=== PATIENT | female | born 1945 | race Caucasian/White ===

== ENCOUNTER → 2016-06-27 | Outpatient (CLI) | payer OTHER ==
[2016-06-27 10:36] LABS: HEMATOCRIT 40.2 % (37.0-47.0); HEMOGLOBIN 12.8 g/dL (12.0-16.0); MEAN CORPUSCULAR HEMOGLOBIN 28.5 PG (27-31); MEAN CORPUSCULAR HGB CONC 31.8 g/dL (33-37); MEAN PLATELET VOLUME 10.1 FL (7.4-12.2); RDW COEFFICIENT OF VARIATION 14.9 % (11.5-14.5); RED BLOOD COUNT 4.49 10^6/uL (4.20-5.40); WHITE BLOOD COUNT 5.38 10^3/uL (4.8-10.8)
[2016-06-27 10:48] LABS: BAND NEUTROPHILS % 0 % (0-10); BASOPHILS % (MANUAL) 1 % (0-1); EOSINOPHILS % (MANUAL) 1 % (0-8); LYMPHOCYTES % (MANUAL) 16 % (10-50); MONOCYTES % (MANUAL) 9 % (0-12); NEUTROPHILS % (MANUAL) 73 % (50-80); PLATELET MORPHOLOGY COMMENT NORMAL MORPHOLOGY (NORM)
== END ==
LOC: MOB LAB 09:44
PROVIDERS: ATTEND Podiatrist Foot & Ankle Surgery
DX: L97.529 Non-pressure chronic ulcer of other part of left foot with unspecified severity (principal); E11.9 Type 2 diabetes mellitus without complications
CPT/HCPCS: 36415; 85007; 86140

== ENCOUNTER → 2016-07-04 | Outpatient (CLI) | payer OTHER | LOC: MMPC 11:11 | PROVIDERS: ATTEND Internal Medicine | DX: E11.9 Type 2 diabetes mellitus without complications (principal); I10 Essential (primary) hypertension; R19.7 Diarrhea, unspecified; F41.1 Generalized anxiety disorder; E78.5 Hyperlipidemia, unspecified; E03.9 Hypothyroidism, unspecified; E66.01 Morbid (severe) obesity due to excess calories; M14.672 Charcot's joint, left ankle and foot; K52.9 Noninfective gastroenteritis and colitis, unspecified | CPT/HCPCS: 99213; G0463 ==

== ENCOUNTER → 2016-07-05 | Outpatient (CLI) | payer OTHER | LOC: MMPC 10:00 | PROVIDERS: ATTEND Podiatrist Foot & Ankle Surgery | DX: L97.422 Non-pressure chronic ulcer of left heel and midfoot with fat layer exposed (principal); E11.621 Type 2 diabetes mellitus with foot ulcer; L97.512 Non-pressure chronic ulcer of other part of right foot with fat layer exposed; M79.672 Pain in left foot; M20.11 Hallux valgus (acquired), right foot; G62.89 Other specified polyneuropathies; M21.41 Flat foot [pes planus] (acquired), right foot; M21.6X1 Other acquired deformities of right foot; E66.01 Morbid (severe) obesity due to excess calories; Z89.421 Acquired absence of other right toe(s); M21.42 Flat foot [pes planus] (acquired), left foot; M21.6X2 Other acquired deformities of left foot | CPT/HCPCS: 97597 ×2; G0463 ==

== ENCOUNTER → 2016-07-11 | Outpatient (CLI) | payer OTHER ==
[2016-07-11 10:56] LABS: BLOOD UREA NITROGEN 24 mg/dL (7-22); CREATININE 0.6 mg/dL (0.50-1.20); EST GLOMERULAR FILTRATION > 60 (>60 ml/min/1.73m(2))
--- NOTE | 2016-07-11 12:42 | DI ---
MRI LOW EXTREMITY W/WO CN,07/11/2016 10:38 AM: Clinical History: Left foot pain. Previous Exam: X-ray of the left foot performed May 17, 2016 Findings: Multiplanar MR images are obtained through the left foot with and without contrast. Multiple postsurgical changes are seen consistent with fixation of the subtalar joints as well as the calcaneocuboid joint. Postsurgical changes are seen of the left first metatarsophalangeal joint with a lag screw through the proximal left first phalanx. Patient is status post amputation of the second digit at the metatarsophalangeal joint. There is also an amputation of the third middle interphalangeal joint. There are advanced degenerative changes involving the intertarsal joints predominantly at the navicul ar cuneiform joints where there is subchondral cyst formation consistent with active degeneration. Signal characteristics are limited within the midfoot and hindfoot due to metallic blooming artifact. There is pes planus deformity. There is a trace amount fluid within the distal tibiofibular joint. No acute fractures are seen. There is no fluid collection. The musculature is unremarkable although a trophic. Impression: Advanced degeneration of the mid foot predominantly with degenerative changes of the tarsometatarsal joints and intertarsal joints. Postsurgical changes are seen consistent with uterine of the hindfoot and amputations of the second and third digits.
== END ==
LOC: MRI 10:25
PROVIDERS: ATTEND Podiatrist
DX: M79.672 Pain in left foot (principal); M19.072 Primary osteoarthritis, left ankle and foot
CPT/HCPCS: 36415; 73720; 82565; 84520; A9579

== ENCOUNTER → 2016-07-12 | Outpatient (CLI) | payer OTHER | LOC: MMPC 10:00 | PROVIDERS: ATTEND Podiatrist Foot & Ankle Surgery | DX: L97.422 Non-pressure chronic ulcer of left heel and midfoot with fat layer exposed (principal); E11.621 Type 2 diabetes mellitus with foot ulcer; E66.01 Morbid (severe) obesity due to excess calories; E11.42 Type 2 diabetes mellitus with diabetic polyneuropathy; I73.9 Peripheral vascular disease, unspecified; M20.41 Other hammer toe(s) (acquired), right foot; M21.961 Unspecified acquired deformity of right lower leg; M20.11 Hallux valgus (acquired), right foot; M21.6X1 Other acquired deformities of right foot; M21.6X2 Other acquired deformities of left foot | CPT/HCPCS: 11042 ==

== ENCOUNTER → 2016-07-25 | Outpatient (CLI) | payer OTHER ==
[2016-07-25 16:17] LABS: BASOPHILS # (AUTO) 0.02 10*3/UL; BASOPHILS % (AUTO) 0.4 % (0-1); EOSINOPHILS % (AUTO) 1.7 % (0-8); HEMATOCRIT 38.8 % (37.0-47.0); HEMOGLOBIN 12.4 g/dL (12.0-16.0); IMM GRAN % (AUTO) 0.2 % (0-5); IMM GRAN# (AUTO) 0.01 10*3/UL; LYMPHOCYTES % (AUTO) 23.5 % (10-50); MEAN CORPUSCULAR HEMOGLOBIN 27.9 PG (27-31); MEAN PLATELET VOLUME 9.7 FL (7.4-12.2); MONOCYTES # (AUTO) 0.53 10*3/UL (0.3-0.8); MONOCYTES % (AUTO) 11.3 % (5-15); NEUTROPHILS # (AUTO) 2.95 10*3/UL; NEUTROPHILS % (AUTO) 62.9 % (50-80); RDW COEFFICIENT OF VARIATION 15.4 % (11.5-14.5); RED BLOOD COUNT 4.44 10^6/uL (4.20-5.40); WHITE BLOOD COUNT 4.69 10^3/uL (4.8-10.8)
[2016-07-25 16:18] LABS: PLATELET MORPHOLOGY COMMENT NORMAL MORPHOLOGY (NORM)
[2016-07-25 16:27] LABS: BLOOD UREA NITROGEN 22 mg/dL (7-22); BUN/CREATININE RATIO 31.42 (6-20); C-REACTIVE PROTEIN 2.9 mg/dL (0.0-0.9); CALCIUM 9.8 mg/dL (8.7-10.7); CHLORIDE 99 meq/L (98-112); CREATININE 0.7 mg/dL (0.50-1.20); EST GLOMERULAR FILTRATION > 60 (>60 ml/min/1.73m(2)); GLUCOSE 121 mg/dL (78-110); POTASSIUM 4.7 meq/L (3.8-5.2); SODIUM 134 meq/L (135-145)
[2016-07-25 16:55] LABS: ERYTHROCYTE SEDIMENTATION RATE 25 MM/HR (0-20)
== END ==
LOC: MOB LAB 14:28
PROVIDERS: ATTEND Internal Medicine
DX: E11.9 Type 2 diabetes mellitus without complications (principal); E03.9 Hypothyroidism, unspecified; E78.5 Hyperlipidemia, unspecified; I10 Essential (primary) hypertension; I73.9 Peripheral vascular disease, unspecified; L97.511 Non-pressure chronic ulcer of other part of right foot limited to breakdown of skin; M86.179 Other acute osteomyelitis, unspecified ankle and foot; R19.7 Diarrhea, unspecified
CPT/HCPCS: 36415; 80048; 83036; 85025; 85652; 86140

== ENCOUNTER → 2016-08-08 | Outpatient (CLI) | payer OTHER ==
[2016-08-08 16:48] LABS: BLOOD UREA NITROGEN 31 mg/dL (7-22); BUN/CREATININE RATIO 44.28 (6-20); CALCIUM 9.5 mg/dL (8.7-10.7); EST GLOMERULAR FILTRATION > 60 (>60 ml/min/1.73m(2)); SERUM ALBUMIN 4.4 g/dL (3.5-4.8)
== END ==
LOC: LAB 16:14
PROVIDERS: ATTEND Internal Medicine Infectious Disease
DX: E11.621 Type 2 diabetes mellitus with foot ulcer (principal); L97.529 Non-pressure chronic ulcer of other part of left foot with unspecified severity; L97.519 Non-pressure chronic ulcer of other part of right foot with unspecified severity; L03.115 Cellulitis of right lower limb
CPT/HCPCS: 36415; 80053

== ENCOUNTER → 2016-08-13 | Outpatient (CLI) | payer OTHER ==
[2016-08-13 17:18] LABS: BLOOD UREA NITROGEN 22 mg/dL (7-22); BUN/CREATININE RATIO 36.66 (6-20); CALCIUM 9.5 mg/dL (8.7-10.7); EST GLOMERULAR FILTRATION > 60 (>60 ml/min/1.73m(2))
[2016-08-13 17:21] LABS: HEMOGLOBIN A1C 6.91 % (4.2-6.0)
== END ==
LOC: MOB LAB 16:29
PROVIDERS: ATTEND Internal Medicine
DX: E11.9 Type 2 diabetes mellitus without complications (principal); R60.0 Localized edema
CPT/HCPCS: 36415; 80048; 83036

== ENCOUNTER → 2016-09-13 | Outpatient (CLI) | payer OTHER | LOC: MMPC 10:00 | PROVIDERS: ATTEND Podiatrist Foot & Ankle Surgery | DX: M79.671 Pain in right foot (principal); L97.511 Non-pressure chronic ulcer of other part of right foot limited to breakdown of skin; M20.41 Other hammer toe(s) (acquired), right foot; E11.621 Type 2 diabetes mellitus with foot ulcer | CPT/HCPCS: 99212; G0463 ==

== ENCOUNTER → 2016-09-26 | Outpatient (CLI) | payer OTHER ==
--- NOTE | 2016-09-27 09:13 | DI ---
XR FOOT COMPLETE MIN 3VW WB,09/26/2016 12:22 PM: Clinical History: Ulcer of the right foot Previous Exam: May 17, 2016 contralateral side. Findings: 3 views of the right foot are obtained, and demonstrate a pes planus deformity with degenerative tirado ges of the calcaneonavicular joint as well as the tibiotalar joint. There is a hallux valgus deformity involving the right first metatarsophalangeal joint measuring 27?. A few peripheral vascular calcifications are seen. Impression: 27? of hallux varus of the right first metatarsophalangeal joint. Severe pes planus deformity with degenerative changes of the hindfoot and midfoot.
== END ==
LOC: RAD 12:28 → MOB RAD 12:28
PROVIDERS: ATTEND Podiatrist Foot & Ankle Surgery
DX: L97.511 Non-pressure chronic ulcer of other part of right foot limited to breakdown of skin (principal); M20.10 Hallux valgus (acquired), unspecified foot; M20.5X1 Other deformities of toe(s) (acquired), right foot
CPT/HCPCS: 73630

== ENCOUNTER 2016-10-09 21:47 | Emergency (ER) | payer OTHER ==
[2016-10-09] MEDS ORDERED: Sodium Chloride 0.9% 1,000 ML PRIMARY IV ONE (22:13)
[2016-10-09] MEDS ORDERED: NORMAL SALINE 10 ML SYRINGE FLUSH IVP PRN (22:13)
[2016-10-09] MEDS ORDERED: ONDANSETRON 4 MG/2 ML VIAL IVP ONE (22:13)
--- NOTE | 2016-10-09 22:24 | PDOC ---
Nausea/Vomiting/Diarrhea HPI - General Chief Complaint: Nausea / Vomiting / Diarrhea Stated Complaint: Nausea Date Seen by Provider: 10/09/16 Time Seen by Provider: 22:10 Source: POSITIVE: Patient Exam Limitations: POSITIVE: No limitations Nurse's Notes Reviewed & Considered: Yes - History of Present Illness Initial Comments: The patient is a 70-year-old female who presents to the emergency department with sudden onset of nausea, vomiting and diarrhea. She states that she ate at [employer] in earlier this evening. She was apparently on her way to the grocery store when she had onset of severe nausea. She was not feeling well at all and was making her way to the emergency room. In the parking lot she had multiple episodes of emesis and on arrival to the ER had multiple episodes of diarrhea. She denies any associated abdominal pain currently. She now has a headache after vomiting. She denies chest pain however does report that she feels somewhat short of breath. She denies any pain with taking a breath. She was feeling fine prior to this evening. She is currently being treated in a cast for a nonhealing ulcer on her left foot. She denies any prior history of blood clots. She does have a history of COPD. She previously was on antibiotics for her foot however has been off antibiotics for about a month. She was not having any diarrhea prior to this evening. - Patient Home Medications Home Medications: Home Medications Dexlansoprazole [Dexilant] 60 mg PO QAM 05/02/11 Blood Sugar Diagnostic [Freestyle Lite Test Strips] 1 strip MC QD #50 strip 04/10 Estrogens, Conj Vaginal Cream [Premarin Vaginal Cream] 0.5 gm VAGINAL 2XW tube 05/16/15 Venlafaxine HCl [Venlafaxine Hcl Er] 1 tab PO DAILY #30 cap 06/29/15 Venlafaxine HCl [Venlafaxine Hcl Er] 1 tab PO DAILY #30 tab 06/29/15 Buspirone HCl 0.5 tab PO PRN #30 tab 07/20/15 Potassium Chloride 1 cap PO QD #60 cap 01/24/16 Celecoxib [Celebrex] 1 cap PO DAILY #100 cap 02/14/16 Metoprolol Succinate [Toprol Xl] 1 tab PO QHS #90 tab-cap 02/14/16 Levomefolate/B6/B12/Algal Oil [Metanx Capsule] 1 each PO BID #180 cap 03/13/16 Sodium Chloride [Wound Wash Saline] 210 ml TOPICAL QD #3 spray 04/05/16 Foam Bandage [Mepilex Border] 1 each TOPICAL BID #1 box 05/17/16 Honey [Medihoney] 1 applic TOPICAL QD #1 applic 05/17/16 Oxybutynin Chloride [Oxybutynin Chloride Er] 1 tab-cap PO DAILY #90 tab Metformin HCl 1 tab PO QAM tab 08/08/16 Metformin HCl 1 tab PO QPM #270 tab 08/08/16 Furosemide 1 tab-cap PO BID #60 tab 08/13/16 Lisinopril 1 tab-cap PO BID #180 tab 08/13/16 Levothyroxine Sodium [Synthroid] 1 tab-cap ORAL DAILY #90 tab-cap 09/05/16 Gabapentin 1 tab-cap PO BID #180 tab 09/25/16 Ondansetron Odt [Zofran Odt] 8 mg PO Q6H PRN #10 tab.rapdis 10/10/16 - Patient Allergies Allergies/Adverse Reactions: Allergies Allergy/AdvReac Type Severity Reaction Status Date / Time Fbqtaik-Ikt-Ejh Reductase AdvReac JUST FEELS Verified 10/09/16 22:23 Inhibitor "OFF" Past Medical History - heen HEENT History: Denies History Cardiovascular History: Hypertension, CAD, Hyperlipidemia Additional Cardiovasular History: Pt denies that she does not have any "heart problems". Respiratory History: COPD, Shortness of Breath, Sleep Apnea, Home Oxygen Use, Home CPAP Use Additional Respiratory History: CPAP at night only. Denies home oxygen use. Gastrointestinal History: GERD, Irritable Bowel Syndrome, Other (please comment) Additional Gastrointestinal History: SHELBY'S ESOPHAGUS Genitourinary History: Incontinence, Other (please comment) Additional Genitourinary History: Recurrent vaginal yeast infections. Pt reports this is caused by the antibiotics that she takes daily. Endocrine History: Type 2 Diabetes (oral), Hypothyroidism Musculoskeletal History: Arthritis, Muscle Weakness, Limited ROM, Joint Pain, Physical Limitation, Osteoarthritis Prosthesis or Implant: Yes Additional Musculoskeletal History: bilat hip replacement, reconstructive surg left foot. Pt reports having had several small operations on her right foot. DEGENERATION OF CERVICAL INTERVERTEBRAL DISC,total right shoulder replacemnt. Neurological History: Motion Sickness Additional Neurological History: PERIPHERAL NEUROPATHY/CHRONIC FATIGUE SYNDROME Blood Disorders: Denies History Psychiatric History: Depression, Anxiety Disorders History of Sexually Transmitted Diseases: No Cancer History: Other (please comment) Cancer Treatment / Date(s) of Treatment: HYST/ RADIATION 2010 History of MDRO: No History of Other Communicable Diseases: No Alcohol Use: None Substance Use Type: None Previous Surgical History: Yes Type / Date of Surgery: Patient reports that she has had bilateral hip replacement(1992-L hip, 1994-R hip). In addition she has operations on both feet (2009-L foot,2012-R foot). Pt reports that her left foot has internalfixation. Hx of hysterectomy 2010. RIGHT TSA/ COLONOSCOPY/ EGD Anesthesia Reactions: Yes (PONV) Malignant Hyperthermia: No Significant Family History: Heart disease, Cancer, Diabetes, Hypertension Past Medical History Reviewed: Reviewed - No Changes ROS - Limitations ROS Limitations: No Limitations Constitution: DENIES: Chills, Fever Cardiovascular: REPORTS: Denies Cardiac Symptoms. DENIES: Chest Pain, Heart Racing Respiratory: REPORTS: Shortness Of Breath. DENIES: Cough Non Productive, Cough Productive Neurological: REPORTS: Headache. DENIES: Numbness, Fainting, Weakness Gastrointestinal: REPORTS: Nausea, Vomitting, Diarrhea. DENIES: Abdominal Pain , Black Stools, Bloody Stools Musculoskeletal: REPORTS: Denies MS Symptoms Genitourinary: REPORTS: Denies Symptoms Eyes: REPORTS: Denies Symptoms ENT: REPORTS: Denies Symptoms Skin: DENIES: Rash Nausea/Vomiting/Diarrhea Exam - General Appearance General Appearance: POSITIVE: Alert, Cooperative, No Acute Distress, Other (She does appear acutely ill) - HEENT HEENT: POSITIVE: Head Inspection Nml, Eyes Inspection Nml, Ears Inspection Nml, Dry Mucous Membranes - Neck Neck: POSITIVE: Supple, Normal Inspection - Respiratory Respiratory: POSITIVE: No Respiratory Distress, Breath Sounds Normal - Cardiovascular Cardiovascular: POSITIVE: Regular Rate and Rhythm, Heart Sounds Normal - Abdomen Abdomen: Soft: (All Quadrants), Normal Bowel Sounds: (All Quadrants), Denies Tenderness: (All Quadrants), No Distention: (All Quadrants) - Skin Skin: POSITIVE: Intact, No Rash - Extremities Extremity: Normal ROM: (All Extremities) Additional Extremities Details: Her left lower extremity is in a cast N/V/D Progress - Results Reviewed by me Lab Results Reviewed: Yes Lab Results:: Laboratory Results 05/16/17 Range/Units 22:18 WBC 6.58 (4.8-10.8) 10^3/uL RBC 4.71 (4.20-5.40) 10^6/uL Hgb 12.9 (12.0-16.0) g/dL Hct 40.7 (37.0-47.0) % MCV 86.4 (81-99) FL MCH 27.4 (27-31) PG MCHC 31.7 L (33-37) g/dL RDW Std Deviation 49.7 (39-50) fL RDW Coeff of Concha 15.9 H (11.5-14.5) % Plt Count 233 (140-350) 10*3/uL MPV 9.5 (7.4-12.2) FL Immature Gran % (Auto) 0.2 (0-5) % Neut % (Auto) 77.0 (50-80) % Lymph % (Auto) 10.8 (10-50) % Henry % (Auto) 9.1 (5-15) % Eos % (Auto) 2.1 (0-8) % Baso % (Auto) 0.8 (0-1) % Immature Gran # (Auto) 0.01 10*3/UL Neut # (Auto) 5.07 10*3/UL Lymph # (Auto) 0.71 10*3/uL Henry # (Auto) 0.60 (0.3-0.8) 10*3/UL Eos # (Auto) 0.14 10*3/UL Baso # (Auto) 0.05 10*3/UL WBC Morphology Comment Normal morphology (NORM) Plt Morphology Comment Normal morphology (NORM) RBC Morph Comment Normal morphology (NORM) Sodium 140 (135-145) meq/L Potassium 3.9 (3.8-5.2) meq/L Chloride 104 (98-112) meq/L Carbon Dioxide 24 (23-33) meq/L Anion Gap 12 (5-20) BUN 18 (7-22) mg/dL Creatinine 0.6 (0.50-1.20) mg/dL Estimated GFR > 60 (>60 ml/min/1.73m(2)) BUN/Creatinine Ratio 30.00 H (6-20) Glucose 161 H (78-110) mg/dL Calculated Osmolality 294.0 H (267-292) mOsm/kg Calcium 8.7 (8.7-10.7) mg/dL Magnesium 1.3 L (1.6-2.4) mg/dL Total Bilirubin 0.6 (0.3-1.2) mg/dL AST 29 (8-39) IU/L ALT 28 (9-52) IU/L Alkaline Phosphatase 88 (38-126) IU/L Troponin I 0.000 (< 0.040) ng/mL C-Reactive Protein 1.2 H (0.0-0.9) mg/dL Total Protein 7.3 (6.1-8.0) g/dL Albumin 3.8 (3.5-4.8) g/dL Globulin 3.5 (2.50-4.10) g/dL Albumin/Globulin Ratio 1.00 L (1.3-2.0) mg/g Amylase 106 (30-110) U/L Lipase 77 (23-300) IU/L EKG Interpreted/Reviewed By Me:: Yes EKG Interpretation:: POSITIVE: Normal Sinus Rhythm, Normal Rate, Normal Intervals, Normal ST/T - Patient's Progress MDM / ED Course: An IV is established and she received 1 L bolus of normal saline as well as Zofran 4 mg IV. After administration of fluids and Zofran the patient was feeling much better. She had no further vomiting or diarrhea here in the emergency room. Her magnesium was found to be low and she received 2 g of magnesium IV. At this point her clinical presentation is most consistent with a viral gastroenteritis or food poisoning. She is feeling better currently and is considered stable for discharge home. She was discharged with Zofran 8 mg every 6 hours as needed for nausea or vomiting. She will return to the emergency room if increased vomiting or dehydration, abdominal pain, any worsening or change in symptoms. - Consult Counseled: POSITIVE: Patient, RE: Lab Results, RE: DX, RE: Need for F/U Patient Care Time - Estimated PCT Patient Care Time (In Minutes): 30 Vital Signs - Recent Vital Signs Vital Signs: Vital Signs (Last 8 hours) Temp Pulse Resp BP Pulse Ox 10/09/16 22:13 96.9 F 86 18 154/99 95 - VS Reviewed Vital Signs Reviewed: Yes Discharge Clinical Impression: Gastroenteritis, Dehydration, Hypomagnesemia Discharge Disposition: Discharged to Home Condition: Stable Prescriptions / Orders: Ondansetron Odt [Zofran Odt] 8 mg PO Q6H PRN #10 tab.rapdis PRN Reason: Nausea / Vomiting Patient Instructions Given at Discharge: Dehydration (ED), Gastroenteritis (ED) , Hypomagnesemia (ED) Additional Instructions: The setting onset of nausea, vomiting and diarrhea is most likely related to a viral stomach flu or food poisoning. You have been prescribed Zofran 8 mg every 6 hours as needed for nausea. Push fluids and continue a bland diet until feeling better. Return to the emergency room if increased vomiting or dehydration, abdominal pain, any worsening or change in symptoms. Follow Up With: FREDDY HARDING [Primary Care Provider] -
--- NOTE | 2016-10-09 22:28 | EKG ---
[address] [place] [address] Measurements Intervals [place] Rate: 80 P: 45 CT: 172 QRS: -68 QRSD: 118 T: 67 QT: 402 QTc: 438 Interpretive Statements SINUS RHYTHM MARKED LEFT AXIS DEVIATION [QRS AXIS < -30] POSSIBLE ANTERIOR MYOCARDIAL INFARCTION [30 ms Q WAVE IN V3/V4, OR R < 0.2 mV IN V4], OF INDETERMINATE AGE Compared to ECG 09/17/2014 13:55:32 Left-axis deviation now present Myocardial infarct finding now present Left anterior fascicular block no longer present Electronically Signed On 10-10-16 08:05:31 MDT by Abilio Rust MD [email or web address]
[2016-10-09 22:41] LABS: BASOPHILS % (AUTO) 0.8 % (0-1)
[2016-10-09 22:49] VITALS: RESP 18; TEMP 96.9
[2016-10-09 23:03] LABS: BASOPHILS # (AUTO) 0.05 10*3/UL; EOSINOPHILS # (AUTO) 0.14 10*3/UL; EOSINOPHILS % (AUTO) 2.1 % (0-8); HEMATOCRIT 40.7 % (37.0-47.0); HEMOGLOBIN 12.9 g/dL (12.0-16.0); LYMPHOCYTES # (AUTO) 0.71 10*3/uL; MEAN CORPUSCULAR HEMOGLOBIN 27.4 PG (27-31); MEAN CORPUSCULAR HGB CONC 31.7 g/dL (33-37); MEAN CORPUSCULAR VOLUME 86.4 FL (81-99); MEAN PLATELET VOLUME 9.5 FL (7.4-12.2); MONOCYTES % (AUTO) 9.1 % (5-15); NEUTROPHILS # (AUTO) 5.07 10*3/UL; RED BLOOD COUNT 4.71 10^6/uL (4.20-5.40)
[2016-10-09 23:07] LABS: WBC MORPHOLOGY COMMENT NORMAL MORPHOLOGY (NORM)
[2016-10-09 23:08] LABS: PLATELET MORPHOLOGY COMMENT NORMAL MORPHOLOGY (NORM); RBC MORPHOLOGY COMMENT NORMAL MORPHOLOGY (NORM)
[2016-10-09 23:17] LABS: BLOOD UREA NITROGEN 18 mg/dL (7-22); EST GLOMERULAR FILTRATION > 60 (>60 ml/min/1.73m(2))
[2016-10-09 23:18] LABS: CALCIUM 8.7 mg/dL (8.7-10.7)
[2016-10-09 23:19] LABS: SERUM ALBUMIN 3.8 g/dL (3.5-4.8)
[2016-10-09 23:20] LABS: LIPASE 77 IU/L (23-300)
[2016-10-09 23:32] LABS: C-REACTIVE PROTEIN 1.2 mg/dL (0.0-0.9); MAGNESIUM 1.3 mg/dL (1.6-2.4)
[2016-10-09] MEDS ORDERED: Magnesium Sulfate 2gm (Premix) 2 GM in Premix 1 BAG IV ONE (23:51)
[2016-10-10] MEDS ORDERED: Ondansetron ODT Tab 8 MG TAB PO SCH (00:15)
== END 2016-10-10 00:40 | disposition home or self-care (01) ==
LOC: ER 21:47
DX: K52.9 Noninfective gastroenteritis and colitis, unspecified (principal); E86.0 Dehydration; E83.42 Hypomagnesemia; R19.7 Diarrhea, unspecified; R06.02 Shortness of breath; R51 Headache; R11.2 Nausea with vomiting, unspecified; I10 Essential (primary) hypertension; E11.40 Type 2 diabetes mellitus with diabetic neuropathy, unspecified
CPT/HCPCS: 80053; 82150; 82948; 83690; 83735; 84484; 85025; 86140; 93005; 93010; 96361; 96365; 96375; 99283 ×2; Q0162; J2405; J3475; J7030

== ENCOUNTER → 2016-10-12 | Outpatient (CLI) | payer OTHER | LOC: MMPC 10:00 | PROVIDERS: ATTEND Podiatrist Foot & Ankle Surgery | DX: L97.422 Non-pressure chronic ulcer of left heel and midfoot with fat layer exposed (principal); L97.519 Non-pressure chronic ulcer of other part of right foot with unspecified severity; L97.429 Non-pressure chronic ulcer of left heel and midfoot with unspecified severity; E11.621 Type 2 diabetes mellitus with foot ulcer; R60.0 Localized edema | CPT/HCPCS: 99213; G0463 ==

== ENCOUNTER → 2016-10-31 | Outpatient (CLI) | payer OTHER | LOC: MMPC 10:00 | PROVIDERS: ATTEND Podiatrist Foot & Ankle Surgery | DX: M20.11 Hallux valgus (acquired), right foot (principal); L97.422 Non-pressure chronic ulcer of left heel and midfoot with fat layer exposed; I73.9 Peripheral vascular disease, unspecified; E66.01 Morbid (severe) obesity due to excess calories; E11.42 Type 2 diabetes mellitus with diabetic polyneuropathy; Z89.421 Acquired absence of other right toe(s) | CPT/HCPCS: 99212; G0463 ==

== ENCOUNTER → 2016-11-06 | Outpatient (CLI) | payer OTHER ==
[2016-11-06 13:50] LABS: BASOPHILS # (AUTO) 0.01 10*3/UL; BASOPHILS % (AUTO) 0.2 % (0-1); EOSINOPHILS # (AUTO) 0.23 10*3/UL; EOSINOPHILS % (AUTO) 5.4 % (0-8); HEMATOCRIT 39.7 % (37.0-47.0); HEMOGLOBIN 12.6 g/dL (12.0-16.0); LYMPHOCYTES # (AUTO) 0.75 10*3/uL; MEAN CORPUSCULAR HEMOGLOBIN 27.2 PG (27-31); MEAN CORPUSCULAR HGB CONC 31.7 g/dL (33-37); MEAN CORPUSCULAR VOLUME 85.6 FL (81-99); MEAN PLATELET VOLUME 9.4 FL (7.4-12.2); MONOCYTES # (AUTO) 0.46 10*3/UL (0.3-0.8); MONOCYTES % (AUTO) 10.8 % (5-15); NEUTROPHILS # (AUTO) 2.82 10*3/UL; RED BLOOD COUNT 4.64 10^6/uL (4.20-5.40)
[2016-11-06 13:53] LABS: PLATELET MORPHOLOGY COMMENT NORMAL MORPHOLOGY (NORM); RBC MORPHOLOGY COMMENT NORMAL MORPHOLOGY (NORM); WBC MORPHOLOGY COMMENT NORMAL MORPHOLOGY (NORM)
[2016-11-06 14:01] LABS: BLOOD UREA NITROGEN 19 mg/dL (7-22); BUN/CREATININE RATIO 31.66 (6-20); CALCIUM 9.3 mg/dL (8.7-10.7); CHOL/HDL RATIO 3.84 RATIO (0-4.0); EST GLOMERULAR FILTRATION > 60 (>60 ml/min/1.73m(2)); HDL CHOLESTEROL 65 mg/dL (40-150); SERUM CHOLESTEROL 250 mg/dL (120-200)
[2016-11-06 14:08] LABS: BILIRUBIN,URINE NEGATIVE (NEG); CLARITY,URINE CLEAR (CLEAR); COLOR,URINE YELLOW; GLUCOSE, URINE (UA) NEGATIVE (NEG); NITRATE,URINE NEGATIVE (NEG); OCCULT BLOOD,URINE NEGATIVE (NEG); PH,URINE 5.5 (5.0-8.5); PROTEIN,URINE NEGATIVE (NEG); UROBILINOGEN,URINE 0.2 mg/dL (0.2)
[2016-11-06 14:21] LABS: HEMOGLOBIN A1C 6.48 % (4.2-6.0)
[2016-11-06 14:23] LABS: RBC,URINE 0-1 /hpf; SQUAMOUS EPITHELIAL CELL,UR FEW; URINE SAMPLE TYPE CLEAN CATCH URINE; WBC,URINE 0-2
[2016-11-06 14:24] LABS: BACTERIA,URINE FEW
[2016-11-06 14:33] LABS: CREATININE, URINE 81.1 MG/DL (15-500)
== END ==
LOC: LAB 13:29
PROVIDERS: ATTEND Internal Medicine
DX: E11.9 Type 2 diabetes mellitus without complications (principal); E78.5 Hyperlipidemia, unspecified; I10 Essential (primary) hypertension; E03.9 Hypothyroidism, unspecified; R06.02 Shortness of breath; E83.42 Hypomagnesemia; R53.83 Other fatigue; E66.01 Morbid (severe) obesity due to excess calories; Z68.41 Body mass index [BMI] 40.0-44.9, adult; K44.9 Diaphragmatic hernia without obstruction or gangrene; F41.1 Generalized anxiety disorder
CPT/HCPCS: 36415; 80048; 80061; 81001; 82043; 83036; 83735; 85025; 99214; G0463

== ENCOUNTER → 2016-11-15 | Outpatient (CLI) | payer OTHER ==
[2016-11-15 15:32] LABS: BASOPHILS # (AUTO) 0.02 10*3/UL; BASOPHILS % (AUTO) 0.5 % (0-1); EOSINOPHILS # (AUTO) 0.08 10*3/UL; HEMATOCRIT 38.1 % (37.0-47.0); LYMPHOCYTES # (AUTO) 0.76 10*3/uL; MEAN CORPUSCULAR HEMOGLOBIN 26.9 PG (27-31); MEAN CORPUSCULAR HGB CONC 31.5 g/dL (33-37); MEAN CORPUSCULAR VOLUME 85.4 FL (81-99); MEAN PLATELET VOLUME 9.6 FL (7.4-12.2); MONOCYTES # (AUTO) 0.52 10*3/UL (0.3-0.8); NEUTROPHILS # (AUTO) 2.63 10*3/UL; NEUTROPHILS % (AUTO) 65.5 % (50-80); RED BLOOD COUNT 4.46 10^6/uL (4.20-5.40)
[2016-11-15 15:38] LABS: PLATELET MORPHOLOGY COMMENT NORMAL MORPHOLOGY (NORM); RBC MORPHOLOGY COMMENT NORMAL MORPHOLOGY (NORM); WBC MORPHOLOGY COMMENT NORMAL MORPHOLOGY (NORM)
== END ==
LOC: MOB LAB 14:18
PROVIDERS: ATTEND Podiatrist Foot & Ankle Surgery
DX: E11.621 Type 2 diabetes mellitus with foot ulcer (principal); L97.422 Non-pressure chronic ulcer of left heel and midfoot with fat layer exposed; L03.115 Cellulitis of right lower limb; L97.511 Non-pressure chronic ulcer of other part of right foot limited to breakdown of skin
CPT/HCPCS: 36415; 85025; 99213

== ENCOUNTER → 2016-11-26 | Outpatient (CLI) | payer OTHER ==
--- NOTE | 2016-11-26 13:06 | DI ---
MRI LEFT FOOT SCAN WITHOUT AND WITH IV CONTRAST, 11/26/2016 11:01 AM: Clinical History: Left foot infection. Previous Exam: 07/11/2016. Technique: Axial, coronal, and sagittal pre-and postcontrast fat saturated T1 weighted; sagittal STI R and T2-weighted scans. The patient is status post amputation of the second toe with osteotomies of the proximal phalanx of t he great toe and the first metatarsal bone. Arthrodesis has been performed in the talocalcaneal joint and the calcaneocuboidal joint. Soft tissue swelling with enhancement is present over the dorsal krishan face of the distal half of the second through third metatarsal bones near the metatarsophalangeal julissa nts. No free fluid collection is present to indicate an abscess and this soft tissue enhancement is c onsistent with cellulitis. No joint effusions are noted. There is no abnormal signal pattern noted in the bone marrow of any of the metatarsal bones. Readin. There is cellulitis along the dorsal aspect of the distal head of the second metatarsal bone and extending over the metatarsophalangeal joints laterally to the third metatarsophalangeal joint. There is no evidence of an abscess or osteomyelitis. 2. Status post osteotomies of the distal first metatarsal bone and the proximal phalanx of the great toe. Status post talocalcaneal and calcaneocuboidal arthrodesis procedures.
== END ==
LOC: MRI 10:41
PROVIDERS: ATTEND Podiatrist
DX: L97.523 Non-pressure chronic ulcer of other part of left foot with necrosis of muscle (principal); L97.511 Non-pressure chronic ulcer of other part of right foot limited to breakdown of skin; L03.818 Cellulitis of other sites
CPT/HCPCS: 73720

== ENCOUNTER → 2016-12-07 | Outpatient (CLI) | payer OTHER ==
--- NOTE | 2016-12-08 11:32 | DI ---
LEFT FOOT, 12/07/2016 3:24 PM: Clinical History: Left foot infection. Previous Exam: 05/17/2016. 3 views are submitted. There is soft tissue swelling on the plantar surface of the foot with an inden tation in the skin midway between the calcaneus and the toes. This may represent an ulcer. The patien t is status post extensive fusions. The patient is status post talocalcaneal and calcaneocuboidal and talonavicular fusions. A fusion has been performed between the first metatarsal bone and the first c uneiform bone. Although these fusions are solid. The patient is status post osteotomies of the first metatarsal bone and the proximal phalanx of the great toe. There are defects from previous hardware i n the tarsal bones. There are tears of sclerosis and lucencies in the base of the second through four th toes and in the distal of the tarsal bones and the talocalcaneal fusion. The patient is status pos t amputations of the second toe and the middle and distal phalanges of the third toe. The overall katie earance is unchanged from the previous exam. A definite sequestrum or involucrum is not identified. Readin. There is soft tissue swelling with what may represent an ulcer on the plantar aspect of the foot. No soft tissue gas is seen. 2. Status post osteotomies of the first metatarsal bone and the proximal phalanx of the great toe. S tatus post multiple fusions as above in the described effusions are solid. This patient has also had hardware removed in the past. 3. There is no periosteal new bone formation to suggest acute osteomyelitis. No sequestrum or involu cruz is seen to suggest chronic osteomyelitis.
== END ==
LOC: RAD 15:09
PROVIDERS: ATTEND Internal Medicine Infectious Disease
DX: M79.672 Pain in left foot (principal); M86.172 Other acute osteomyelitis, left ankle and foot; Z98.1 Arthrodesis status
CPT/HCPCS: 73630

== ENCOUNTER 2017-03-01 12:08 | Inpatient (IN) ==
[2017-03-01] MEDS ORDERED: BISACODYL 5 MG TABLET PO PRN (15:29)
[2017-03-01] MEDS ORDERED: ONDANSETRON 4 MG/2 ML VIAL IVP PRN (15:29)
[2017-03-01] MEDS ORDERED: HYDROcodone-APAP 5 MG -325 MG TABLET PO PRN (15:29)
[2017-03-01] MEDS ORDERED: LIDOCAINE W/ SODIUM BICARB 0.5 ML SYR SUBD PRN (15:29)
[2017-03-01] MEDS ORDERED: BISACODYL 10 MG SUPPOSITORY RECTAL PRN (15:29)
[2017-03-01] MEDS ORDERED: Ondansetron ODT Tab 8 MG TAB PO PRN (15:31)
--- NOTE | 2017-03-01 15:44 | PDOC ---
HPI - History of Present Illness History of Present Illness: Please see my H&P in note from this morning and yesterday an H&P from yesterday a day before. Patient is essentially admitted to inpatient for acute angioedema of the left lung left side of the face was given steroids and Benadryl with improvement SHAHIDA inhibitor was stopped. Also she had to be she had to have a new PICC line inserted for her to continue on IV antibiotics twice daily we will continue to monitor closely and make sure the swelling keeps on resolving. See H&P from this morning's note Past Medical History Medical History: 1. 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 2. Osteoarthritis. 3. Hypothyroidism. 4. Hypercholesterolemia. 5. GERD. 6. Chronic ulcers of the feet along with Charcot foot disease Surgical History: 1. Hip replacements. 2. Bilateral complications . 3. Bilateral foot surgeries. 4. Shoulder replacement recently. 5. Left foot surgery with bone debridement and removal of infected hardware this was done past Saturday Pertinent Family History: Significant for arthritis and cancer Past Social History: , lives alone [place], Works [place] [employer] jobs in the [place]. Does not smoke or drink. Has 2 daughters, one lives in [place]. Tobacco Use: Former Smoker In the Past 12 Months, Have Used or Abuse Any of the Following Substance: None Medication / Allergies Home Medications: Home Medications Medication Instructions Recorded Confirmed Type Dexlansoprazole [Dexilant] 60 mg PO QAM 05/02/11 02/17/17 History Blood Sugar Diagnostic [Freestyle 1 strip MC QD #50 strip 08/04/14 02/17/17 History Lite Test Strips] Buspirone HCl 0.5 tab PO PRN #30 tab 07/20/15 02/17/17 History Potassium Chloride 1 cap PO QD #60 cap 01/24/16 02/17/17 History Levomefolate/B6/B12/Algal Oil 1 ea PO BID #180 cap 03/13/16 02/17/17 Rx [Metanx Capsule] Sodium Chloride [Wound Wash Saline] 210 ml TOPICAL QD #3 spray 04/05/16 Rx Oxybutynin Chloride [Oxybutynin 1 tab-cap PO DAILY #90 tab 05/24/16 02/17/17 Rx Chloride Er] Furosemide 1 tab-cap PO BID #60 tab 08/13/16 02/17/17 Rx Lisinopril 1 tab-cap PO BID #180 tab 08/13/16 02/17/17 Rx Levothyroxine Sodium [Synthroid] 1 tab-cap ORAL DAILY #90 tab-cap 09/05/1602/17 Rx Gabapentin 1 tab-cap PO BID #180 tab 09/25/16 02/17/17 Rx Ondansetron Odt [Zofran Odt] 8 mg PO Q6H PRN #10 tab.rapdis 10/10/16 02/17/17 Rx Metformin HCl 1 tab PO QAM #60 tab 01/07/17 02/17/17 Rx Metoprolol Succinate [Toprol Xl] 1 tab PO QHS #90 tab-cap 01/07/17 02/17/17 Rx conjugated estrogens 0.625 mg/gram 0.5 g VAGINAL 2XW #3 g 02/13/17 02/17/17 Rx vaginal cream venlafaxine ER 150 mg 150 mg PO QDAY #90 cap 02/13/17 02/17/17 Rx capsule,extended release 24 hr venlafaxine ER 75 mg 75 mg PO DAILY #90 tab 02/13/17 02/17/17 Rx tablet,extended release 24 hr Allergies/Adverse Reactions: Allergies 3 Allergy/AdvReac Type Severity Reaction Status Date / Time clindamycin AdvReac Intermediate SHORTNESS Verified 02/27/17 18:35 OF BREATH Omjzqiu-Zen-Obo Reductase AdvReac JUST FEELS Verified 02/27/17 18:35 Inhibitor "OFF" Exam - Vitals Vital Signs: Vital Signs Temperature 98 F Temperature Source Temporal Artery Scan Pulse Rate [Pulse Oximeter] 86 Respiratory Rate 20 Blood Pressure [Right Arm] 194/83 Pulse Ox 91 Oxygen Delivery Method Room Air Height 5 ft 4 in Weight 239 lb
[2017-03-01] MEDS ORDERED: BUSPIRONE HCL PO SCH (15:45)
[2017-03-01] MEDS ORDERED: [UNRECOGNIZED DRUG - OTHER] TOPICAL SCH (15:45)
[2017-03-01] MEDS ORDERED: SODIUM CHLORIDE TOPICAL SCH (15:45)
[2017-03-01] MEDS ORDERED: ESTROGENS,CONJUGATED 30 GM CREAM VAGINAL SCH (15:45)
[2017-03-01] MEDS ORDERED: BLOOD SUGAR DIAGNOSTIC MC SCH (15:45)
[2017-03-01] MEDS ORDERED: Non-Formulary Drug (Venlafaxine Hcl [Venlafaxine Hcl Er] 150 MG) PO SCH (15:45)
--- NOTE | 2017-03-01 17:48 | PT.PROG ---
Progress Note Progress Note: S. Patient stated that she has had a crazy morning and is tired. O. Patient was wheeled to the therapy gym where she performed seated exercises in the form of; marches, heel toe raises, long arc quads, ball squeezes, resisted knee flexion, clamshells, all x 10 bilaterally with 4#, 1# and red thera-band, sit to stands x 5, and standing weight shifts x 1 minute. Patient was wheeled to her room where she was left in her chair with alarm and call light. A. Patient tolerated exercise fair today, She was unable to perform as much exercise today due to needing her infusion. Patient would continue to benefit from skilled therapy at this time. P. Continue POC.
--- NOTE | 2017-03-01 17:50 | PT.PROG ---
Progress Note Progress Note: S. Patient stated that she is feeling a little better today compared to this morning. O. Patient was wheeled to the therapy gym where she used the Nu-step x 10 minutes then performed seated exercises in the form of; marches, heel toe raises , long arc quads, ball squeezes, resisted knee flexion, clamshells, all x 20 bilaterally with 4#, 1# and red thera-band, sit to stands x 15. Patient was wheeled back to her room where she was wheeled to her room where she was left in her chair with alarm and call light. A. Patient tolerated exercise fair today, Patient continues to require therapy due to protocol. P. Continue POC.
[2017-03-01] MEDS: NORMAL SALINE 10 ML SYRINGE FLUSH IVP PRN (19:08)
[2017-03-01] MEDS: Ampicillin/Sulbactam Inj 3 GM in Sodium Chloride 0.9% 100 ML IV SCH (19:08)
[2017-03-01] MEDS ORDERED: LEVOMEFOLATE PO SCH (21:00)
[2017-03-01] MEDS ORDERED: B6 PO SCH (21:00)
[2017-03-01] MEDS ORDERED: B12 PO SCH (21:00)
[2017-03-01] MEDS ORDERED: LISINOPRIL 20 MG TABLET PO SCH (21:00)
[2017-03-01] MEDS ORDERED: FUROSEMIDE 20 MG TABLET PO SCH (21:00)
[2017-03-01] MEDS ORDERED: ALGAL OIL PO SCH (21:00)
[2017-03-01] MEDS: GABAPENTIN 300 MG CAPSULE PO SCH (21:48)
[2017-03-01] MEDS: metFORMIN 850 MG TABLET PO SCH (21:48)
[2017-03-01] MEDS: METOPROLOL SUCCINATE 25 MG SR 24H TABLET PO SCH (21:48)
[2017-03-01] MEDS: HEPARIN 5000 UNIT/1 ML SUBCUT SCH (21:56)
[2017-03-02] MEDS: HEPARIN 5000 UNIT/1 ML SUBCUT SCH ×3 (04:06→20:36)
[2017-03-02] MEDS: LEVOTHYROXINE 112 MCG TABLET PO SCH (04:36)
[2017-03-02] MEDS: HEPARIN 500 UNIT/5 ML SYRINGE FOR CENTRAL LINE IVP PRN ×3 (04:44→20:37)
[2017-03-02] MEDS: Ampicillin/Sulbactam Inj 3 GM in Sodium Chloride 0.9% 100 ML IV SCH ×3 (04:58→20:36)
[2017-03-02] MEDS ORDERED: methylPREDNISolone 125 MG/2 ML VIAL IVP ONE (07:10)
[2017-03-02] MEDS: FUROSEMIDE 20 MG TABLET PO SCH ×2 (07:11→13:25)
--- NOTE | 2017-03-02 07:22 | PDOC(PROG) ---
Interval History: Doing well has no complaints no nausea no vomiting no pain in her tongue swelling is resolved at this point Objective : Data - Labs CBC and BMP: 03/02/17 07:30 03/02/17 07:30 Objective : Exam - General General Appearance: Cooperative - Head Head Exam: Normal Inspection - Eye Eye Exam: Normal Appearance - Respiratory Respiratory Exam: Clear to Auscultation - Bilaterally, Breathing Non Labored, Normal To Percussion - Cardiovascular Cardiovascular Exam: RRR, No Murmur, No Clicks - GI/Abdominal GI/Abdominal Exam: Non Tender, Non Distended, Soft Assessment and Plan - Patient Problems (1) HTN (hypertension) Current Visit: Yes Status: Acute Comment: added norvasc had to stop shahida poss angioedema now resolved Code(s): I10 - Essential (primary) hypertension (2) Allergic reaction Current Visit: No Status: Acute Comment: Possible angioedema from SHAHIDA inhibitor patient was treated with Benadryl and the Solu-Medrol will repeat one more dose of Solu-Medrol today Code(s): T78.40XA - Allergy, unspecified, initial encounter (3) Diabetes mellitus type II, controlled Current Visit: No Status: Acute Comment: Stable Code(s): E11.9 - Type 2 diabetes mellitus without complications Qualifiers: Diabetes mellitus complication status: with neurologic complications Diabetes mellitus complication detail: with autonomic neuropathy Diabetes mellitus exterminator termite insulin use: without jail use Qualified Code(s): E11.43 - Type 2 diabetes mellitus with diabetic autonomic (poly)neuropathy (4) Osteomyelitis Current Visit: No Status: Acute Comment: Continue antibiotics Code(s): M86.9 - Osteomyelitis, unspecified Qualifiers: Osteomyelitis type: subacute Osteomyelitis location: foot Laterality: left Qualified Code(s): M86.272 - Subacute osteomyelitis, left ankle and foot (5) Hypertension Current Visit: Yes Status: Acute Comment: As above Code(s): I10 - Essential (primary) hypertension (6) Hypomagnesemia Current Visit: Yes Status: Acute Comment: Replace 2 g IV Code(s): E83.42 - Hypomagnesemia
[2017-03-02 07:46] LABS: BASOPHILS # (AUTO) 0.02 10*3/UL; BASOPHILS % (AUTO) 0.5 % (0-1); EOSINOPHILS # (AUTO) 0.08 10*3/UL; EOSINOPHILS % (AUTO) 1.9 % (0-8); Hematocrit [HCT] 31.4 % (37.0-47.0); Hemoglobin [HGB] 9.6 g/dL (12.0-16.0); LYMPHOCYTES # (AUTO) 1.08 10*3/uL; MEAN CORPUSCULAR HEMOGLOBIN 26.1 PG (27-31); MEAN CORPUSCULAR HGB CONC 30.6 g/dL (33-37); MEAN CORPUSCULAR VOLUME 85.3 FL (81-99); MEAN PLATELET VOLUME 9.4 FL (7.4-12.2); MONOCYTES # (AUTO) 0.42 10*3/UL (0.3-0.8); MONOCYTES % (AUTO) 10.1 % (5-15); NEUTROPHILS # (AUTO) 2.57 10*3/UL; NEUTROPHILS % (AUTO) 61.6 % (50-80); RED BLOOD COUNT 3.68 10^6/uL (4.20-5.40)
[2017-03-02 07:49] LABS: PLATELET MORPHOLOGY COMMENT NORMAL MORPHOLOGY (NORM); RBC MORPHOLOGY COMMENT NORMAL MORPHOLOGY (NORM); WBC MORPHOLOGY COMMENT NORMAL MORPHOLOGY (NORM)
[2017-03-02 07:55] LABS: BLOOD UREA NITROGEN 17 mg/dL (7-22); BUN/CREATININE RATIO 28.33 (6-20); MAGNESIUM 1.5 mg/dL (1.6-2.4); SERUM ALBUMIN 3.8 g/dL (3.5-4.8)
[2017-03-02] MEDS ORDERED: Magnesium Sulfate 2gm (Premix) 2 GM/50 ML BAG IV ONE (08:23)
[2017-03-02] MEDS ORDERED: metFORMIN 850 MG TABLET PO SCH (09:00)
[2017-03-02] MEDS: GABAPENTIN 300 MG CAPSULE PO SCH ×2 (10:33→20:36)
[2017-03-02] MEDS: RIFAMPIN 300 MG PO SCH (10:33)
[2017-03-02] MEDS: NORMAL SALINE 10 ML SYRINGE FLUSH IVP PRN ×2 (10:33→20:37)
[2017-03-02] MEDS: Potassium Chloride Tab 10 MEQ TAB PO SCH (10:34)
[2017-03-02] MEDS: Oxybutynin ER Tab 5 MG TAB PO SCH (10:34)
[2017-03-02] MEDS: metFORMIN 850 MG TABLET PO SCH ×2 (10:34→20:36)
[2017-03-02] MEDS: VENLAFAXINE XR 75 MG CAP PO SCH (10:34)
[2017-03-02] MEDS: ACETAMINOPHEN 325 MG TABLET PO PRN (18:53)
[2017-03-02] MEDS: METOPROLOL SUCCINATE 25 MG SR 24H TABLET PO SCH (20:36)
[2017-03-03] MEDS: HEPARIN 500 UNIT/5 ML SYRINGE FOR CENTRAL LINE IVP PRN ×2 (04:31→19:24)
[2017-03-03] MEDS: Ampicillin/Sulbactam Inj 3 GM in Sodium Chloride 0.9% 100 ML IV SCH ×3 (04:31→19:24)
[2017-03-03] MEDS: LEVOTHYROXINE 112 MCG TABLET PO SCH (05:10)
[2017-03-03] MEDS: HEPARIN 5000 UNIT/1 ML SUBCUT SCH ×3 (05:14→20:54)
[2017-03-03] MEDS: FUROSEMIDE 20 MG TABLET PO SCH ×2 (07:01→13:38)
[2017-03-03] MEDS: GABAPENTIN 300 MG CAPSULE PO SCH ×2 (09:16→20:53)
[2017-03-03] MEDS: Potassium Chloride Tab 10 MEQ TAB PO SCH (09:17)
[2017-03-03] MEDS: ACETAMINOPHEN 325 MG TABLET PO PRN ×2 (09:17→21:33)
[2017-03-03] MEDS: RIFAMPIN 300 MG PO SCH (09:17)
[2017-03-03] MEDS: VENLAFAXINE XR 75 MG CAP PO SCH (09:18)
[2017-03-03] MEDS: Oxybutynin ER Tab 5 MG TAB PO SCH (09:18)
[2017-03-03] MEDS: metFORMIN 850 MG TABLET PO SCH ×2 (09:18→20:53)
[2017-03-03] MEDS: PANTOPRAZOLE 40 MG TABLET PO SCH ×2 (11:07→21:32)
[2017-03-03] MEDS ORDERED: Iron Sucrose Inj 500 MG in Sodium Chloride 0.9% 250 ML IV ONE (19:47)
--- NOTE | 2017-03-03 19:52 | PDOC(PROG) ---
Date and Time of Service: 03/03/20171946 Interval History: Patient seen and evaluated earlier today. No chest pain, shortness breath, but does complain of nausea and vomiting in the morning. She states this is been a fairly persistent problem over the last few days. It is not clear, but the patient was started on rifampin around February 23 or February 24. It could be that she is not tolerating this therapy or it could be that the patient is developing gastroparesis-type problems? The patient would like to hold off on the antibiotic and see if her nausea persists. We will hold tomorrow morning's dose. In my review the record, it does appear the patient was supposed to be on this twice a day. I will discuss with infectious disease tomorrow as well. In fact, the patient states that because of her nausea and vomiting, she was not able to make her orthopedic follow-up. Objective : Data - Labs CBC and BMP: 03/02/17 07:30 03/02/17 07:30 Objective : Exam - General General Appearance: No Acute Distress, Cooperative Additional General Exam Details: Vital Signs (24 hrs) Temp Pulse Resp BP Pulse Ox 03/03/17 16:14 97.5 F 94 18 152/76 90 03/03/17 11:23 97.8 F 83 17 190/77 97 03/03/17 07:44 97.2 F 74 18 167/66 91 03/03/17 07:16 80 03/03/17 04:30 98.2 F 74 20 154/68 91 03/03/17 00:26 95 03/03/17 00:07 96.8 F 75 16 128/55 93 03/02/17 20:03 96.9 F 90 20 140/66 93 Blood pressure still elevated, but improved - Eye Eye Exam: No Scleral Icterus - ENT ENT Exam: Mucous Membranes Moist - Respiratory Respiratory Exam: Clear to Auscultation - Bilaterally, Breathing Non Labored - Cardiovascular Cardiovascular Exam: RRR, No Murmur, No Clicks, No Gallops, No Rubs, No JVD - GI/Abdominal GI/Abdominal Exam: Normal Bowel Sounds, Non Tender, Non Distended, Soft - Extremities Extremities Exam: No Clubbing Present, No Edema Present, No Cyanosis Present Additional Extremities Exam Details: Left foot is in a operative boot. I will try to examine with therapy for the wound this week. - Neurological Neurological Exam: Alert, Oriented x 3, No Facial Droop, Speech Intact / Clear, Moves All Extremities Equally - Psychiatric Psychiatric Exam: Normal Affect, Normal Mood - Central Line Examination Central Line Type: PICC Line (left upper extremity and without erythema.) Assessment and Plan - Patient Problems (1) Osteomyelitis Current Visit: Yes Status: Acute Code(s): M86.9 - Osteomyelitis, unspecified Qualifiers: Osteomyelitis type: subacute Osteomyelitis location: foot Laterality: left Qualified Code(s): M86.272 - Subacute osteomyelitis, left ankle and foot (2) Diabetes mellitus type II, controlled Current Visit: Yes Status: Chronic Code(s): E11.9 - Type 2 diabetes mellitus without complications Qualifiers: Diabetes mellitus complication status: with neurologic complications Diabetes mellitus complication detail: with autonomic neuropathy Diabetes mellitus senior care insulin use: without [facility] care use Qualified Code(s): E11.43 - Type 2 diabetes mellitus with diabetic autonomic (poly)neuropathy (3) Anemia of infection Current Visit: Yes Status: Acute Code(s): D64.9 - Anemia, unspecified (4) Allergic reaction Current Visit: Yes Status: Acute Code(s): T78.40XA - Allergy, unspecified, initial encounter Qualifiers: Encounter type: subsequent encounter Qualified Code(s): T78.40XD - Allergy , unspecified, subsequent encounter (5) HTN (hypertension) Current Visit: Yes Status: Acute Code(s): I10 - Essential (primary) hypertension Qualifiers: Hypertension type: essential hypertension Qualified Code(s): I10 - Essential (primary) hypertension (6) Obstructive sleep apnea Current Visit: Yes Status: Chronic Onset Date: 02/14/16 Code(s): G47.33 - Obstructive sleep apnea (adult) (pediatric) (7) Morbid obesity Current Visit: Yes Status: Chronic Onset Date: 03/07/11 Code(s): E66.01 - Morbid (severe) obesity due to excess calories (8) Hypothyroidism Current Visit: Yes Status: Chronic Onset Date: 03/07/11 Code(s): E03.9 - Hypothyroidism, unspecified Qualifiers: Hypothyroidism type: acquired Qualified Code(s): E03.9 - Hypothyroidism, unspecified (9) Hyperlipidemia Current Visit: Yes Status: Chronic Onset Date: 03/07/11 Code(s): E78.5 - Hyperlipidemia, unspecified Qualifiers: Hyperlipidemia type: pure hypercholesterolemia Qualified Code(s): E78.00 - Pure hypercholesterolemia, unspecified; E78.0 - Pure hypercholesterolemia (10) Gastroesophageal reflux disease with esophagitis Current Visit: Yes Status: Chronic Onset Date: 04/25/16 Code(s): K21.0 - Gastro-esophageal reflux disease with esophagitis - Assessment / Plan Additional Assessment/Plan Details: At this point, stop rifampin and see if the symptoms persist. I think holding one dose will not hurt the patient's osteomyelitis overall. As it is Saturday, repeat CMP, CBC with differential, sedimentation rate, and CRP tomorrow. Try to forward the labs to [facility] and talked with her infectious disease specialist regarding the rifampin therapy. Given hypertension, and reaction to SHAHIDA inhibitor with angioedema, resolution of angioedema, I will start hydrochlorothiazide and see if this helps. List SHAHIDA inhibitors as allergy Make sure orthopedic and infectious disease follow-up per scheduled. Ideally, I would love to get the patient to one agent that she can infuse with. She does not think she can manage 3 infusions daily at home. Given anemia of infectious disease and recent reviews (meta-analysis) that show iron does not increase incidence or level and of infection and may reduce blood transfusion requirements, and class adverse effects, I will go ahead and order some IV iron as well. I discussed the plan with the patient and she agreed.
[2017-03-03] MEDS: METOPROLOL SUCCINATE 25 MG SR 24H TABLET PO SCH (20:53)
[2017-03-04] MEDS: Ampicillin/Sulbactam Inj 3 GM in Sodium Chloride 0.9% 100 ML IV SCH ×3 (04:45→20:16)
[2017-03-04] MEDS: HEPARIN 5000 UNIT/1 ML SUBCUT SCH ×3 (05:05→20:15)
[2017-03-04] MEDS: LEVOTHYROXINE 112 MCG TABLET PO SCH (05:05)
[2017-03-04 05:42] LABS: BASOPHILS # (AUTO) 0.01 10*3/UL; BASOPHILS % (AUTO) 0.2 % (0-1); EOSINOPHILS # (AUTO) 0.08 10*3/UL; EOSINOPHILS % (AUTO) 1.7 % (0-8); Hematocrit [HCT] 35.7 % (37.0-47.0); Hemoglobin [HGB] 10.8 g/dL (12.0-16.0); LYMPHOCYTES # (AUTO) 1.06 10*3/uL; MEAN CORPUSCULAR HGB CONC 30.3 g/dL (33-37); MEAN CORPUSCULAR VOLUME 85.8 FL (81-99); MONOCYTES # (AUTO) 0.43 10*3/UL (0.3-0.8); MONOCYTES % (AUTO) 9.3 % (5-15); NEUTROPHILS # (AUTO) 3.02 10*3/UL; NEUTROPHILS % (AUTO) 65.8 % (50-80); RED BLOOD COUNT 4.16 10^6/uL (4.20-5.40)
[2017-03-04 05:54] LABS: PLATELET MORPHOLOGY COMMENT NORMAL MORPHOLOGY (NORM); RBC MORPHOLOGY COMMENT NORMAL MORPHOLOGY (NORM); WBC MORPHOLOGY COMMENT NORMAL MORPHOLOGY (NORM)
[2017-03-04 06:04] LABS: BLOOD UREA NITROGEN 20 mg/dL (7-22); BUN/CREATININE RATIO 28.57 (6-20)
[2017-03-04 06:26] LABS: Erythrocyte Sediment Rate 43 MM/HR (0-20)
[2017-03-04] MEDS: HYDROCHLOROTHIAZIDE 25 MG TABLET PO SCH (07:19)
[2017-03-04] MEDS: PANTOPRAZOLE 40 MG TABLET PO SCH (07:20)
[2017-03-04] MEDS: FUROSEMIDE 20 MG TABLET PO SCH ×2 (07:20→12:37)
[2017-03-04] MEDS: metFORMIN 850 MG TABLET PO SCH ×2 (08:53→20:14)
[2017-03-04] MEDS: Potassium Chloride Tab 10 MEQ TAB PO SCH (08:53)
[2017-03-04] MEDS: Oxybutynin ER Tab 5 MG TAB PO SCH (08:53)
[2017-03-04] MEDS: GABAPENTIN 300 MG CAPSULE PO SCH ×2 (08:54→20:14)
[2017-03-04] MEDS: VENLAFAXINE XR 75 MG CAP PO SCH (08:54)
[2017-03-04] MEDS: ACETAMINOPHEN 325 MG TABLET PO PRN ×2 (08:55→20:15)
--- NOTE | 2017-03-04 09:28 | OT PM DAY ---
Diagnosis : Weakness PM - Occupational Therapy S: The patient states she is really tired after the long morning she had. She states things have just not been going her way. O: The patient was seen in therapy. PT transferred the patient to therapy via wheelchair. Following PT treatment the patient performed therapeutic exercises with green theraband in biceps flexion, shoulder extension, rows, and internal/external rotation followed by shoulder press with a two pound ball. A: The patient lacks range of motion in her left upper extremity which limits some of the activities and exercises we can do. The patient transfers well with contact guard assist. The patient would continue to benefit from therapy to work on her overall upper extremity strength. P: Continue seeing patient BID during the week and one time per day over the weekend for upper extremity strengthening, ADLs, and overall functional mobility. MTDD
[2017-03-04] MEDS: HEPARIN 500 UNIT/5 ML SYRINGE FOR CENTRAL LINE IVP PRN ×2 (11:43→20:16)
[2017-03-04] MEDS: NORMAL SALINE 10 ML SYRINGE FLUSH IVP PRN ×2 (11:43→20:16)
--- NOTE | 2017-03-04 11:51 | PT AM DAY ---
Diagnosis : Weakness AM - Physical Therapy S: The patient reports she is having a bad day today. She states she is very depressed and at a point where she is ready to go home. She states she is having difficulty with the nurses understanding her needs and is frustrated that her IV therapies keep being moved around as well as her inability to see Dr. Abreu on Saturday due to an allergic reaction she had. She states she was on blood pressure medication for over 40 years that the doctor took her off cold turkey and she is very concerned about this. O: Today's therapy consisted of the patient ambulating 50 feet before being required by therapy to utilize a wheelchair to be brought downstairs. She performed therapeutic exercises and functional activities including seated marches, minute drills, long arc quads, NuStep, arm bike, and standing windshield wipers on the left lower extremity only. She also received a dressing change to the left lower extremity removing the Aquacel HG. The area was cleansed with wound cleanser and a new Aquacel HG was used in the wound bed followed by a skin protectant foam dressing, Kerlix, and Stevo wrap. Supplies were all provided by the hospital. A: The wound bed is looking good; however, there is maceration on the dorsal aspect of the plantar surface of the wound. Per patient request, her blood pressure was taken twice and was found to be within her normal limits. The patient made repeated subjective comments about her anxiety about being taken off her reynolds medications. The patient wished to be taken outside for a bit ; however, we were unable to do this due to the patient being required to be upstairs for her IV therapies. P: Continue seeing patient BID during the week and one time per day over the weekend for transfers, ambulation, and range of motion/strengthening exercises. MTDD
--- NOTE | 2017-03-04 12:54 | PT AM DAY ---
Diagnosis : Weakness AM - Physical Therapy S: The patient reports no significant changes. O: The patient ambulated partially to the department. We worked on lower extremity strengthening, upper extremity strengthening, mat work, and transfers. We did a dressing change; the wound looks clean and good. A: We will continue to follow the patient on swingbed as our goals are working out well so far. P: Continue seeing patient BID during the week and one time per day over the weekend for transfers, ambulation, and range of motion/strengthening exercises. MTDD
[2017-03-04] MEDS: METOPROLOL SUCCINATE 25 MG SR 24H TABLET PO SCH (20:15)
--- NOTE | 2017-03-04 21:03 | PDOC(PROG) ---
Date and Time of Service: 03/04/2017, 2057 Interval History: No chest pain, shortness breath. Nausea and vomiting resolved with discontinuation of rifampin. I spoke with infectious disease, and they are okay discontinuing rifampin. The patient does have an ongoing to vancomycin if she would like for decreased number of infusion per day. It may not be her best antibiotic option and I did discuss this with the patient in detail. Objective : Data - Labs CBC and BMP: 03/04/17 04:35 03/04/17 04:35 Additional Lab Results: Laboratory Results 03/04/17 03/04/17 Range/Units 04:35 04:35 WBC 4.60 L (4.8-10.8) 10^3/uL RBC 4.16 L (4.20-5.40) 10^6/uL Hgb 10.8 L (12.0-16.0) g/dL Hct 35.7 L (37.0-47.0) % MCV 85.8 (81-99) FL MCH 26.0 L (27-31) PG MCHC 30.3 L (33-37) g/dL RDW Std Deviation 55.3 H (39-50) fL RDW Coeff of [place] 18.4 H (11.5-14.5) % Plt Count 321 (140-350) 10*3/uL MPV 10.0 (7.4-12.2) FL Immature Gran % (Auto) 0 (0-5) % Neut % (Auto) 65.8 (50-80) % Lymph % (Auto) 23.0 (10-50) % [place] % (Auto) 9.3 (5-15) % Eos % (Auto) 1.7 (0-8) % Baso % (Auto) 0.2 (0-1) % Immature Gran # (Auto) 0 10*3/UL Neut # (Auto) 3.02 10*3/UL Lymph # (Auto) 1.06 10*3/uL [place] # (Auto) 0.43 (0.3-0.8) 10*3/UL Eos # (Auto) 0.08 10*3/UL Baso # (Auto) 0.01 10*3/UL WBC Morphology Comment Normal morphology (NORM) Plt Morphology Comment Normal morphology (NORM) RBC Morph Comment Normal morphology (NORM) ESR 43 H (0-20) MM/HR Sodium 140 (135-145) meq/L Potassium 4.1 (3.8-5.2) meq/L Chloride 97 L (98-112) meq/L Carbon Dioxide 30 (23-33) meq/L Anion Gap 13 (5-20) BUN 20 (7-22) mg/dL Creatinine 0.7 (0.50-1.20) mg/dL Estimated GFR > 60 (>60 ml/min/1.73m(2)) BUN/Creatinine Ratio 28.57 H (6-20) Glucose 113 H (78-110) mg/dL Calculated Osmolality 293.0 H (267-292) mOsm/kg Calcium 9.2 (8.7-10.7) mg/dL Total Bilirubin 0.5 (0.3-1.2) mg/dL AST 21 (8-39) IU/L ALT 35 (9-52) IU/L Alkaline Phosphatase 93 (38-126) IU/L C-Reactive Protein 1.9 H (0.0-0.9) mg/dL Total Protein 7.5 (6.1-8.0) g/dL Albumin 4.0 (3.5-4.8) g/dL Globulin 3.4 (2.50-4.10) g/dL Albumin/Globulin Ratio 1.10 L (1.3-2.0) mg/g Objective : Exam - General General Appearance: No Acute Distress, Cooperative Additional General Exam Details: Vital Signs (24 hrs) Temp Pulse Pulse Resp BP Pulse Ox 03/04/17 17:00 97.8 F 88 18 168/74 91 03/04/17 12:04 97.8 F 77 16 177/82 92 03/04/17 09:24 97.7 F 03/04/17 07:45 97.7 F 73 18 160/71 92 03/04/17 07:25 72 73 03/04/17 05:04 95 03/04/17 04:42 97.4 F 80 24 163/83 91 03/04/17 02:39 135/54 03/04/17 00:57 149/67 03/04/17 00:27 97.4 F 73 16 125/50 73 03/03/17 22:18 134/56 03/03/17 21:30 154/74 - Eye Eye Exam: No Scleral Icterus - ENT ENT Exam: Mucous Membranes Moist - Respiratory Respiratory Exam: Clear to Auscultation - Bilaterally, Breathing Non Labored - Cardiovascular Cardiovascular Exam: RRR, No Murmur, No Clicks, No Gallops, No Rubs, No JVD - GI/Abdominal GI/Abdominal Exam: Normal Bowel Sounds, Non Tender, Non Distended, Soft - Extremities Extremities Exam: No Clubbing Present, No Edema Present, No Cyanosis Present - Neurological Neurological Exam: Alert, Oriented x 3, No Facial Droop, Speech Intact / Clear, Moves All Extremities Equally - Central Line Examination Central Line Type: PICC Line (No erythema. Left upper extremity.) Assessment and Plan - Patient Problems (1) Osteomyelitis Current Visit: Yes Status: Acute Code(s): M86.9 - Osteomyelitis, unspecified Qualifiers: Osteomyelitis type: subacute Osteomyelitis location: foot Laterality: left Qualified Code(s): M86.272 - Subacute osteomyelitis, left ankle and foot (2) Diabetes mellitus type II, controlled Current Visit: Yes Status: Chronic Code(s): E11.9 - Type 2 diabetes mellitus without complications Qualifiers: Diabetes mellitus complication status: with neurologic complications Diabetes mellitus complication detail: with autonomic neuropathy Diabetes mellitus [facility] insulin use: without [facility] use Qualified Code(s): E11.43 - Type 2 diabetes mellitus with diabetic autonomic (poly)neuropathy (3) Anemia of infection Current Visit: Yes Status: Acute Code(s): D64.9 - Anemia, unspecified (4) Allergic reaction Current Visit: Yes Status: Acute Code(s): T78.40XA - Allergy, unspecified, initial encounter Qualifiers: Encounter type: subsequent encounter Qualified Code(s): T78.40XD - Allergy , unspecified, subsequent encounter (5) HTN (hypertension) Current Visit: Yes Status: Acute Code(s): I10 - Essential (primary) hypertension Qualifiers: Hypertension type: essential hypertension Qualified Code(s): I10 - Essential (primary) hypertension (6) Obstructive sleep apnea Current Visit: Yes Status: Chronic Onset Date: 02/14/16 Code(s): G47.33 - Obstructive sleep apnea (adult) (pediatric) (7) Morbid obesity Current Visit: Yes Status: Chronic Onset Date: 03/07/11 Code(s): E66.01 - Morbid (severe) obesity due to excess calories (8) Hypothyroidism Current Visit: Yes Status: Chronic Onset Date: 03/07/11 Code(s): E03.9 - Hypothyroidism, unspecified Qualifiers: Hypothyroidism type: acquired Qualified Code(s): E03.9 - Hypothyroidism, unspecified (9) Hyperlipidemia Current Visit: Yes Status: Chronic Onset Date: 03/07/11 Code(s): E78.5 - Hyperlipidemia, unspecified Qualifiers: Hyperlipidemia type: pure hypercholesterolemia Qualified Code(s): E78.00 - Pure hypercholesterolemia, unspecified; E78.0 - Pure hypercholesterolemia (10) Gastroesophageal reflux disease with esophagitis Current Visit: Yes Status: Chronic Onset Date: 04/25/16 Code(s): K21.0 - Gastro-esophageal reflux disease with esophagitis - Assessment / Plan Additional Assessment/Plan Details: I think the patient would be served best by staying on Unasyn. The mycin is a possibility for outpatient infusion should the patient wish to do that, but I think a strategy of having the patient on a swing bed makes more sense. For the patient's hypertension, again she has SHAHIDA inhibitor allergy with angioedema. It is completely resolved. We have had to add hydrochlorothiazide to the patient's hypertensive regimen. Follow-up with ID and orthopedics this Saturday. I'll place in orders for evaluation for swing bed. After 5 days visit with infectious disease, we can determine hopefully the length of therapy, but it will likely be a total of 4 more weeks with IV therapy prior to ability to discharge home. The patient does not have the capabilities of doing outpatient effusions on 3 time per day antibiotics.
[2017-03-05] MEDS: Ampicillin/Sulbactam Inj 3 GM in Sodium Chloride 0.9% 100 ML IV SCH ×2 (04:34→12:27)
[2017-03-05] MEDS: LEVOTHYROXINE 112 MCG TABLET PO SCH (04:34)
[2017-03-05] MEDS: HEPARIN 5000 UNIT/1 ML SUBCUT SCH ×2 (04:35→12:27)
[2017-03-05] MEDS: VENLAFAXINE XR 75 MG CAP PO SCH (08:14)
[2017-03-05] MEDS: metFORMIN 850 MG TABLET PO SCH (08:14)
[2017-03-05] MEDS: FUROSEMIDE 20 MG TABLET PO SCH ×2 (08:14→12:27)
[2017-03-05] MEDS: GABAPENTIN 300 MG CAPSULE PO SCH (08:14)
[2017-03-05] MEDS: Potassium Chloride Tab 10 MEQ TAB PO SCH (08:15)
[2017-03-05] MEDS: HYDROCHLOROTHIAZIDE 25 MG TABLET PO SCH (08:15)
[2017-03-05] MEDS: PANTOPRAZOLE 40 MG TABLET PO SCH (08:15)
[2017-03-05] MEDS: Oxybutynin ER Tab 5 MG TAB PO SCH (08:15)
--- NOTE | 2017-03-05 09:34 | PT AM DAY ---
Diagnosis : Weakness AM - Physical Therapy S: The patient reports she is still not sure when she is going to go back and see Dr. Abreu and she is very upset about this. O: Today's therapy consisted of the patient being downstairs in the physical therapy gym following occupational therapy. She performed therapeutic exercises and functional activities including NuStep, sit ups, minute drills, straight leg raises, short arc quads, hip abduction/adduction, sit to stands. She then ambulated 50 feet x2 with walker, gait belt, stand by assistance with verbal cues for heel weight-bearing. She then received dressing change to the left lower extremity. The area was cleansed with wound cleanser followed by skin protectant around the plantar surface incision as well as Calamine lotion, Aquacel AG, PolyMem foam dressing, and Stevo wrap. All supplies were provided by the third floor. An indication of pressure was also observed on her right lower extremity on the medial surface of the metatarsal head. A: The patient was advised that she needs to discontinue wearing he Crocs and wear her special custom shoes for her right lower extremity and attempt offloading as much as possible in her room. The patient continues to demonstrate maceration along the incision on the plantar surface. P: Continue seeing patient BID during the week and one time per day over the weekend for transfers, ambulation, and range of motion/strengthening exercises. RAVINDRAD
--- NOTE | 2017-03-05 10:26 | OT AM DAY ---
Diagnosis : Weakness AM - Occupational Therapy S: The patient reports she was nauseated over the weekend. The infectious disease doctors added a new medication that had made her sick on Saturday and Saturday. She states she just doesn't feel as good as she did prior to taking the antibiotic. O: Today the patient worked on therapeutic exercises for overall activity tolerance and strength including three pound weight for biceps curls, triceps, pronation/supination, one pound shoulder flexion x15 and abduction x10 on the right, and the patient simulated some shoulder movement on the left as this is the shoulder that is very difficult for her to move. We worked on red theraband scapular retraction while in an adducted position, internal/external rotation, shoulder extension x20 repetitions each, power web, digi-flex, and flex bar for wrist flexion/extension. A: The patient is doing well and making gains with strength. P: Continue seeing patient BID during the week and one time per day over the weekend for upper extremity strengthening, ADLs, and overall functional mobility. RAVINDRAD
--- NOTE | 2017-03-05 10:43 | OT PM DAY ---
Diagnosis : Weakness PM - Occupational Therapy S: The patient reports no new changes. O: The patient performed therapeutic exercises including blue theraband in all planes and ranges x10 repetitions, four pound barbell biceps curls, pronation/supination with two pounds, and upper body ergometer x6 minutes. A: The patient is a good participant. P: Continue seeing patient BID during the week and one time per day over the weekend for upper extremity strengthening, ADLs, and overall functional mobility. MTDD
--- NOTE | 2017-03-05 10:53 | PT PM DAY ---
Diagnosis : Weakness PM - Physical Therapy S: The patient reports no significant changes. O: The patient was brought to the department via wheelchair. She is doing well with her overall mobility; she is transferring independently and ambulating up to 30 feet with stand by assistance. We are working on upper and lower extremity strengthening, wound care in the mornings, and getting outside for some sunshine in the afternoon. A: The patient is doing well with her overall mobility. Overall the therapist has not seen the patient do this well in a long time with her overall mobility and health. We will continue to progress so that she can ascend some stairs and continue to improve upon her ambulation distance. P: Continue seeing patient BID during the week and one time per day over the weekend for transfers, ambulation, and range of motion/strengthening exercises. DEREK
--- NOTE | 2017-03-05 11:17 | OT AM DAY ---
Diagnosis : Weakness AM - Occupational Therapy S: The patient states she has been ready for therapy since about 6:00 AM but she keeps having nurses and doctors come in. O: The patient was seen in her room. She had already completed dressing. She completed functional transfer to wheelchair independently. The patient transferred to therapy via wheelchair. Once in therapy, the patient transferred 10-12 feet. The patient completed upper extremity exercises with green theraband in all planes and ranges bilaterally, keeping her left upper extremity below 90 degrees due to pain. The patient was then transferred to PT. A: The patient is participating well. We will continue to monitor any depression. The patient likes to go outside. P: Continue seeing patient BID during the week and one time per day over the weekend for upper extremity strengthening, ADLs, and overall functional mobility. MTDD
--- NOTE | 2017-03-05 12:00 | PT.PROG ---
Progress Note Progress Note: S. Patient stated that she is tired this morning after having her PICC line redressed. O. Patient was wheeled to the therapy gym where she used the Nu-step x 10 minutes then performed seated exercises in the form of; marches, heel toe raises , long arc quads, ball squeezes, resisted knee flexion, clamshells, all x 20 bilaterally with 5# and red thera-band, sit to stands x 15. Patient was wheeled back to her room where she was left in her chair with alarm and call light. A. Patient tolerated exercise well today, she continues to require min assist with transfers and ambulation, however is making gains with strength and mobility. She would continue to benefit from skilled therapy at this time. P. Continue POC.
[2017-03-05 12:15] VITALS: BP 143/84; RESP 20; TEMP 98; O2SAT 91
[2017-03-05] MEDS: NORMAL SALINE 10 ML SYRINGE FLUSH IVP PRN (12:28)
[2017-03-05] MEDS ORDERED: Magnesium Sulfate 4gm (Premix) 4 GM/100 ML BAG IV ONE (13:55)
--- NOTE | 2017-03-05 15:15 | DCSUMMARY ---
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 She was here receiving IV access and we were monitoring her on the swing bed for her diabetes, hypertension, and other medical issues when she developed severe angioedema and had to be admitted as an inpatient and given steroids, and Benadryl. She recovered from that and it was deemed related to SHAHIDA inhibitor. Her SHAHIDA inhibitor was discontinued and the angioedema resolved. In terms of her antibiotic therapy, that has been persistent with Unasyn. She did have some nausea and vomiting with rifampin and we stopped that and the nausea and vomiting resolved. The patient's labs haven't proved with a decreased sedimentation rate and decreased CRP. Other medical issues were not exacerbated during the hospital stay. Patient denies any chest pain, shortness breath, nausea or vomiting today. She is complained of some intermittent dizziness without syncopal or severe presyncopal symptoms. Assessment and Plan: 1. As per discharge assessments noted 2. Disposition: Patient is discharged to the swing bed. 3. Condition on discharge, stable and improved. 4. Diet: regular diet 5. Activities: Continue physical therapy and occupational therapy 6. Follow-Up: 1. Hospital service will continue to follow the patient on the swing bed. 2. 7. Medications at the Time of Discharge: Home Medications Medication Instructions Recorded Confirmed Type Potassium Chloride 1 cap PO QD #60 cap 01/24/16 02/17/17 History Oxybutynin Chloride [Oxybutynin 1 tab-cap PO DAILY #90 tab 05/24/16 02/17/17 Rx Chloride ER] Furosemide 1 tab-cap PO BID #60 tab 08/13/16 02/17/17 Rx Levothyroxine Sodium [Synthroid] 1 tab-cap ORAL DAILY #90 tab-cap 09/05/1602/17 Rx Gabapentin 1 tab-cap PO BID #180 tab 09/25/16 02/17/17 Rx Metformin HCl 1 tab PO QAM #60 tab 01/07/17 02/17/17 Rx Metoprolol Succinate [Toprol Xl] 1 tab PO QHS #90 tab-cap 01/07/17 02/17/17 Rx Acetaminophen [Tylenol] 650 mg PO Q6H PRN tab 03/05/17 Rx Amlodipine Besylate [Norvasc] 10 mg PO DAILY tab 03/05/17 Rx Ampicillin/Sulbactam Inj [Unasyn 3 gm IV Q8H vial 03/05/17 Rx Inj] HYDROcodone/APAP 5/325 Tab [[place] 1 tab PO Q4H PRN tab 03/05/17 Rx 5/325 Tab] Heparin Inj 5,000 unit SUBCUT Q8H vial 03/05/17 Rx Heparin Lock Inj [Heparin Lock Inj 500 unit IVP BID PRN syringe 03/05/17 Rx (for [facility])] Hydrochlorothiazide [HydroDiuril 25 mg PO EVERY AM tab 03/05/17 Rx Tab] Lidocaine/Sodium Bicarb Inj 0.5 ml SUBD ONCE PRN syr 03/05/17 Rx [Lidocaine Buffered Inj] Magnesium Oxide [Mag-Ox] 400 mg PO C BK tab 03/05/17 Rx Normal Saline Flush [Saline Flush] 5 - 20 ml IVP BID PRN syringe 03/05/17 Rx Ondansetron Inj [Zofran Inj] 4 mg IVP Q4H PRN vial 03/05/17 Rx Venlafaxine HCl ER [Effexor Xr] 225 mg PO DAILY cap.er.24h 03/05/17 Rx 8. Time, care, counseling and coordination of care for this discharge is greater than 30 minutes. Exam - Vitals Vital Signs: Vital Signs Temperature 98.0 F Temperature Source Temporal Artery Scan Pulse Rate [Apical] 72 Pulse Rate [Pulse Oximeter] 92 Respiratory Rate 20 Blood Pressure [Right Arm] 143/84 Pulse Ox 91 Oxygen Flow Rate 3 Oxygen Delivery Method Room Air Height 5 ft 4 in Weight 233 lb 6 oz - General General Appearance: No Acute Distress, Cooperative - Eye Eye Exam: POSITIVE: No Scleral Icterus - ENT ENT Exam: POSITIVE: Mucous Membranes Moist - Respiratory Respiratory Exam: POSITIVE: Clear to Auscultation - Bilaterally, Breathing Non Labored - Cardiovascular Cardiovascular Exam: POSITIVE: RRR, No Murmur, No Clicks, No Gallops, No Rubs, Tachycardia (Was tachycardic on my exam at bedside today after the patient had gotten up and started walking some what. She was with therapy at the time of my exam in her room heading down to therapy downstairs.), No JVD - GI/Abdominal GI/Abdominal Exam: POSITIVE: Normal Bowel Sounds, Non Tender, Non Distended, Soft - Extremities Extremities Exam: POSITIVE: No Clubbing Present, No Edema Present, No Cyanosis Present - Neurological Neurological Exam: POSITIVE: Alert, Oriented x 3, Speech Intact / Clear, Moves All Extremities Equally, Abnormal Gait (Patient's gait is somewhat antalgic. She has a lot of weight transfers from one hip to the other) - Psychiatric Psychiatric Exam: POSITIVE: Normal Affect, Normal Mood Data Perinent Studies: Laboratory Results 03/02/17 03/02/17 03/04/17 Range/Units 07:30 07:30 04:35 WBC 4.17 L 4.60 L (4.8-10.8) 10^3/uL RBC 3.68 L 4.16 L (4.20-5.40) 10^6/uL Hgb 9.6 L 10.8 L (12.0-16.0) g/dL Hct 31.4 L 35.7 L (37.0-47.0) % MCV 85.3 85.8 (81-99) FL MCH 26.1 L 26.0 L (27-31) PG MCHC 30.6 L 30.3 L (33-37) g/dL RDW Std Deviation 54.3 H 55.3 H (39-50) fL RDW Coeff of [place] 18.2 H 18.4 H (11.5-14.5) % Plt Count 307 321 (140-350) 10*3/uL MPV 9.4 10.0 (7.4-12.2) FL Immature Gran % (Auto) 0 0 (0-5) % Neut % (Auto) 61.6 65.8 (50-80) % Lymph % (Auto) 25.9 23.0 (10-50) % [place] % (Auto) 10.1 9.3 (5-15) % Eos % (Auto) 1.9 1.7 (0-8) % Baso % (Auto) 0.5 0.2 (0-1) % Immature Gran # (Auto) 0 0 10*3/UL Neut # (Auto) 2.57 3.02 10*3/UL Lymph # (Auto) 1.08 1.06 10*3/uL [place] # (Auto) 0.42 0.43 (0.3-0.8) 10*3/UL Eos # (Auto) 0.08 0.08 10*3/UL Baso # (Auto) 0.02 0.01 10*3/UL WBC Morphology Comment Normal morphology Normal morphology (NORM) Plt Morphology Comment Normal morphology Normal morphology (NORM) RBC Morph Comment Normal morphology Normal morphology (NORM) ESR 43 H (0-20) MM/HR Sodium 138 (135-145) meq/L Potassium 3.9 (3.8-5.2) meq/L Chloride 101 (98-112) meq/L Carbon Dioxide 27 (23-33) meq/L Anion Gap 10 (5-20) BUN 17 (7-22) mg/dL Creatinine 0.6 (0.50-1.20) mg/dL Estimated GFR > 60 (>60 ml/min/1.73m(2)) BUN/Creatinine Ratio 28.33 H (6-20) Glucose 101 (78-110) mg/dL Calculated Osmolality 287.0 (267-292) mOsm/kg Calcium 9.1 (8.7-10.7) mg/dL Magnesium 1.5 L (1.6-2.4) mg/dL Total Bilirubin 0.4 (0.3-1.2) mg/dL AST 15 (8-39) IU/L ALT 36 (9-52) IU/L Alkaline Phosphatase 85 (38-126) IU/L C-Reactive Protein (0.0-0.9) mg/dL Total Protein 7.0 (6.1-8.0) g/dL Albumin 3.8 (3.5-4.8) g/dL Globulin 3.2 (2.50-4.10) g/dL Albumin/Globulin Ratio 1.10 L (1.3-2.0) mg/g 03/04/17 03/05/17 Range/Units 04:35 04:34 WBC (4.8-10.8) 10^3/uL RBC (4.20-5.40) 10^6/uL Hgb (12.0-16.0) g/dL Hct (37.0-47.0) % MCV (81-99) FL MCH (27-31) PG MCHC (33-37) g/dL RDW Std Deviation (39-50) fL RDW Coeff of [place] (11.5-14.5) % Plt Count (140-350) 10*3/uL MPV (7.4-12.2) FL Immature Gran % (Auto) (0-5) % Neut % (Auto) (50-80) % Lymph % (Auto) (10-50) % [place] % (Auto) (5-15) % Eos % (Auto) (0-8) % Baso % (Auto) (0-1) % Immature Gran # (Auto) 10*3/UL Neut # (Auto) 10*3/UL Lymph # (Auto) 10*3/uL [place] # (Auto) (0.3-0.8) 10*3/UL Eos # (Auto) 10*3/UL Baso # (Auto) 10*3/UL WBC Morphology Comment (NORM) Plt Morphology Comment (NORM) RBC Morph Comment (NORM) ESR (0-20) MM/HR Sodium 140 (135-145) meq/L Potassium 4.1 (3.8-5.2) meq/L Chloride 97 L (98-112) meq/L Carbon Dioxide 30 (23-33) meq/L Anion Gap 13 (5-20) BUN 20 (7-22) mg/dL Creatinine 0.7 (0.50-1.20) mg/dL Estimated GFR > 60 (>60 ml/min/1.73m(2)) BUN/Creatinine Ratio 28.57 H (6-20) Glucose 113 H (78-110) mg/dL Calculated Osmolality 293.0 H (267-292) mOsm/kg Calcium 9.2 (8.7-10.7) mg/dL Magnesium 1.3 L (1.6-2.4) mg/dL Total Bilirubin 0.5 (0.3-1.2) mg/dL AST 21 (8-39) IU/L ALT 35 (9-52) IU/L Alkaline Phosphatase 93 (38-126) IU/L C-Reactive Protein 1.9 H (0.0-0.9) mg/dL Total Protein 7.5 (6.1-8.0) g/dL Albumin 4.0 (3.5-4.8) g/dL Globulin 3.4 (2.50-4.10) g/dL Albumin/Globulin Ratio 1.10 L (1.3-2.0) mg/g Patient Problems - Patient Problem List (1) Osteomyelitis Current Visit: Yes Status: Acute Code(s): M86.9 - Osteomyelitis, unspecified Qualifiers: Osteomyelitis type: subacute Osteomyelitis location: foot Laterality: left Qualified Code(s): M86.272 - Subacute osteomyelitis, left ankle and foot Category: Medical (2) Diabetes mellitus type II, controlled Current Visit: Yes Status: Chronic Code(s): E11.9 - Type 2 diabetes mellitus without complications Qualifiers: Diabetes mellitus complication status: with neurologic complications Diabetes mellitus complication detail: with autonomic neuropathy Diabetes mellitus fci insulin use: without fci use Qualified Code(s): E11.43 - Type 2 diabetes mellitus with diabetic autonomic (poly)neuropathy Category: Medical (3) Anemia of infection Current Visit: Yes Status: Acute Code(s): D64.9 - Anemia, unspecified Category: Medical (4) Allergic reaction Current Visit: Yes Status: Acute Code(s): T78.40XA - Allergy, unspecified, initial encounter Qualifiers: Encounter type: subsequent encounter Qualified Code(s): T78.40XD - Allergy , unspecified, subsequent encounter Category: Medical (5) HTN (hypertension) Current Visit: Yes Status: Acute Code(s): I10 - Essential (primary) hypertension Qualifiers: Hypertension type: essential hypertension Qualified Code(s): I10 - Essential (primary) hypertension Category: Medical (6) Obstructive sleep apnea Current Visit: Yes Status: Chronic Onset Date: 02/14/16 Code(s): G47.33 - Obstructive sleep apnea (adult) (pediatric) Category: Medical (7) Morbid obesity Current Visit: Yes Status: Chronic Onset Date: 03/07/11 Code(s): E66.01 - Morbid (severe) obesity due to excess calories Category: Medical (8) Hypothyroidism Current Visit: Yes Status: Chronic Onset Date: 03/07/11 Code(s): E03.9 - Hypothyroidism, unspecified Qualifiers: Hypothyroidism type: acquired Qualified Code(s): E03.9 - Hypothyroidism, unspecified Category: Medical (9) Hyperlipidemia Current Visit: Yes Status: Chronic Onset Date: 03/07/11 Comment: statin intolerant. Code(s): E78.5 - Hyperlipidemia, unspecified Qualifiers: Hyperlipidemia type: pure hypercholesterolemia Qualified Code(s): E78.00 - Pure hypercholesterolemia, unspecified; E78.0 - Pure hypercholesterolemia Category: Medical (10) Gastroesophageal reflux disease with esophagitis Current Visit: Yes Status: Chronic Onset Date: 04/25/16 Code(s): K21.0 - Gastro-esophageal reflux disease with esophagitis Category: Medical
[2017-03-06] MEDS ORDERED: MAGNESIUM OXIDE 400 MG TABLET PO SCH (07:00)
--- NOTE | 2017-03-07 15:30 | OT PM DAY ---
Diagnosis : Weakness PM - Occupational Therapy S: The patient reports she is improving with her strength, but she knows she still has a long ways to go. O: The patient performed therapeutic exercises including upper body ergometer x4 minutes forward and 4 minutes backward, wall pulleys in all planes and ranges with two kilograms, and red digi-flex and yellow power web for hand strengthening bilaterally. A: The patient is making gains. P: Continue seeing patient BID during the week and one time per day over the weekend for upper extremity strengthening, ADLs, and overall functional mobility. DEREK
== END 2017-03-05 15:48 | disposition swing bed (61) | DRG 541 ==
LOC: MED/SURG 12:33
PROVIDERS: ADMIT Internal Medicine; ATTEND Internal Medicine